=== PATIENT | female | born 1955 | race Caucasian/White ===

== ENCOUNTER 2020-12-21 06:41 | Inpatient (IN) | payer MEDICARE, OTHER ==
[~2020-12-21] VITALS: Ht 162.6 cm; Wt 81.2 kg
[2020-12-22 07:17] LABS: HEMOGLOBIN 10.3 gm/dl (12.3-15.3); RED BLOOD COUNT 3.54 M/UL (4.00-5.10); WHITE BLOOD COUNT 12.6 K/UL (4.5-11.0)
[2020-12-22] MEDS ORDERED: FUROSEMIDE40 MG PO (07:39)
[2020-12-22] MEDS ORDERED: NOVOLIN 70100 UNIT/2 SQ (07:39)
[2020-12-22] MEDS ORDERED: LOPRESSOR 50 MG50 MG PO (07:40)
[2020-12-22] MEDS ORDERED: HYDRALAZINE HCL25 MG PO (07:40)
[2020-12-22] MEDS ORDERED: LASIX 40 MG TAB40 MG PO (07:40)
[2020-12-22] MEDS ORDERED: PAROXETINE HCL10 MG PO (07:40)
[2020-12-22] MEDS ORDERED: HYDROCHLOROTH12.5 MG PO (07:41)
[2020-12-22] MEDS ORDERED: RELION NOV100 UNIT/1 SQ (07:41)
[2020-12-22] MEDS ORDERED: PROTONIX 40 MG40 M1 PO (11:45)
[2020-12-23 03:10] LABS: HEMOGLOBIN 9.8 gm/dl (12.3-15.3); RED BLOOD COUNT 3.41 M/UL (4.00-5.10); WHITE BLOOD COUNT 12.2 K/UL (4.5-11.0)
[2020-12-24 03:35] LABS: RED BLOOD COUNT 3.16 M/UL (4.00-5.10); WHITE BLOOD COUNT 10.1 K/UL (4.5-11.0)
[2020-12-25 03:22] LABS: HEMOGLOBIN 10.1 gm/dl (12.3-15.3)
[2020-12-25 03:24] LABS: RED BLOOD COUNT 3.56 M/UL (4.00-5.10); WHITE BLOOD COUNT 7.3 K/UL (4.5-11.0)
[2020-12-26 11:13] LABS: ANTISTREPTOLYSIN O AB 406.6 IU/mL (0.0-200.0); COMPLEMENT C3, SERUM 172 mg/dL (82-167); COMPLEMENT C4, SERUM 36 mg/dL (12-38); HBSAG SCREEN Negative (Negative); HEP B CORE AB, TOT Negative (Negative); HEP C VIRUS AB <0.1 (0.0-0.9)
[2020-12-26 15:14] LABS: ANTI-DSDNA ANTIBODIES 1 IU/mL (0-9)
[2020-12-26 16:13] LABS: A/G RATIO 0.5 (0.7-1.7); ALBUMIN 1.9 g/dL (2.9-4.4); ALPHA-1-GLOBULIN 0.6 g/dL (0.0-0.4); ALPHA-2-GLOBULIN 1.1 g/dL (0.4-1.0); GAMMA GLOBULIN 1.2 g/dL (0.4-1.8); GLOBULIN, TOTAL 3.9 g/dL (2.2-3.9); IMMUNOFIXATION RESULT, SERUM Comment: (.); IMMUNOGLOBULIN A, QN, SERUM 304 mg/dL (87-352); IMMUNOGLOBULIN G, QN, SERUM 935 mg/dL (586-1602); IMMUNOGLOBULIN M, QN, SERUM 154 mg/dL (26-217); M-SPIKE Not Observed g/dL (Not Observed); PROTEIN, TOTAL, SERUM 5.8 g/dL (6.0-8.5)
[2020-12-27 04:04] LABS: HEMOGLOBIN 9.8 gm/dl (12.3-15.3); RED BLOOD COUNT 3.38 M/UL (4.00-5.10); WHITE BLOOD COUNT 7.7 K/UL (4.5-11.0)
[2020-12-27 18:09] LABS: ATYPICAL PANCA <1:20 titer (Neg:<1:20); CYTOPLASMIC (C-ANCA) <1:20 titer (Neg:<1:20); PERINUCLEAR (P-ANCA) <1:20 titer (Neg:<1:20)
--- NOTE | 2020-12-28 06:11 | NUR ---
WOUND CARE PERFORMED ON PATIENT. BILATERAL LOWER LEG WOUNDS CLEANSED WITH WOUND ELECTROPHYSIOLOGY TECHNICIAN AND NONSTICK DRESSINGS APPLIED, COVERED WITH ABD PADS AND WRAPPED WITH DRU. PT TOLERATED WELL. LOWER EXTREMITIES ELEVATED ON PILLOWS TO KEEP HEELS OFF THE BED. PT ALSO TURNED TO HER LEFT SIDE.
[2020-12-30 04:12] LABS: HEMOGLOBIN 10.4 gm/dl (12.3-15.3); RED BLOOD COUNT 3.74 M/UL (4.00-5.10); WHITE BLOOD COUNT 9.5 K/UL (4.5-11.0)
[2020-12-31 03:08] LABS: HEMOGLOBIN 9.8 gm/dl (12.3-15.3); RED BLOOD COUNT 3.52 M/UL (4.00-5.10); WHITE BLOOD COUNT 10.1 K/UL (4.5-11.0)
--- NOTE | 2020-12-31 17:09 | NUR ---
DRESSINGS TO BILATERAL LEGS/*FEET CHANGED, CLEANSED WITH NS, PAT DRY, SANTYL APPLIED TO SLOTH AREA ON TOP OF RIGHT LEG AND TO AREAS OF LEFT HEEL THAT ARE NECROTIC/ESCAR FOLLOWED BY WET TO DRY DRESSING COVERED WITH KERLIX, OTHER AREAS COVERED WITH WET/DRY DRESSING.
[2021-01-01 04:01] LABS: HEMOGLOBIN 9.6 gm/dl (12.3-15.3); RED BLOOD COUNT 3.43 M/UL (4.00-5.10); WHITE BLOOD COUNT 11.1 K/UL (4.5-11.0)
[2021-01-02 02:02] LABS: HEMOGLOBIN 10.4 gm/dl (12.3-15.3); RED BLOOD COUNT 3.76 M/UL (4.00-5.10); WHITE BLOOD COUNT 8.6 K/UL (4.5-11.0)
[2021-01-02 08:13] LABS: ATYPICAL PANCA <1:20 titer (Neg:<1:20); CYTOPLASMIC (C-ANCA) <1:20 titer (Neg:<1:20); PERINUCLEAR (P-ANCA) <1:20 titer (Neg:<1:20)
[2021-01-03 04:19] LABS: HEMOGLOBIN 10.4 gm/dl (12.3-15.3); RED BLOOD COUNT 3.77 M/UL (4.00-5.10); WHITE BLOOD COUNT 7.5 K/UL (4.5-11.0)
--- NOTE | 2021-01-03 14:30 | NUR ---
BATH GIVEN, LINENS CHANGED, WOUND CARE TO BILATERAL LEGS DONE, CLEANSED WITH NS, PAT DRY, IODINE SOAKED 4X4'S PLACED ON WOUNDS COVERED WITH DRY DRESSING AND KERLIX APPLIED.
[2021-01-05 02:10] LABS: HEMOGLOBIN 8.5 gm/dl (12.3-15.3); WHITE BLOOD COUNT 6.9 K/UL (4.5-11.0)
[2021-01-05 02:13] LABS: RED BLOOD COUNT 3.07 M/UL (4.00-5.10)
[2021-01-06 04:26] LABS: HEMOGLOBIN 8.5 gm/dl (12.3-15.3); RED BLOOD COUNT 3.11 M/UL (4.00-5.10); WHITE BLOOD COUNT 5.6 K/UL (4.5-11.0)
[2021-01-06 10:01] LABS: URINE CREATININE 85.3 mg/dL
[2021-01-07 03:46] LABS: HEMOGLOBIN 9.7 gm/dl (12.3-15.3)
[2021-01-07 03:51] LABS: RED BLOOD COUNT 3.5 M/UL (4.00-5.10); WHITE BLOOD COUNT 8.4 K/UL (4.5-11.0)
[2021-01-08 08:04] LABS: HEMOGLOBIN 8.6 gm/dl (12.3-15.3); RED BLOOD COUNT 3.19 M/UL (4.00-5.10); WHITE BLOOD COUNT 5.5 K/UL (4.5-11.0)
--- NOTE | 2021-01-08 18:21 | NUR ---
DRESSING CHANGED TO BILATERAL FEET PER MD ORDERS
[2021-01-09] MEDS ORDERED: HUMALOG 10100 UNITS/ SC (11:30)
[2021-01-09] MEDS ORDERED: SANTYL OINT 3030 GM TOP (11:30)
[2021-01-09] MEDS ORDERED: ATORVASTATIN CA20 MG PO (11:30)
[2021-01-09] MEDS ORDERED: CHRONULAC20 GM/30 M PO (11:30)
[2021-01-09] MEDS ORDERED: ALDACTONE 25MG25 MG PO (11:30)
[2021-01-09] MEDS ORDERED: ASPIRIN EC81 MG PO (11:30)
[2021-01-09] MEDS ORDERED: DOCUSATE SODIU100 MG PO (11:30)
[2021-01-09] MEDS ORDERED: CARVEDILOL3.125 MG PO (11:30)
[2021-01-09] MEDS ORDERED: BUMETANIDE1 MG PO (11:30)
--- NOTE | 2021-01-09 16:40 | NUR ---
REPORT CALLED TO [facility]. EXPLAINED TO ACCEPTING NURSE PATIENTS EF AND LIFE VEST IN PLACE. NURSE STATED SHE DIDN'T KNOW SHE HAD A LIFE VEST. I TOLD HER THE DATE IT WAS PLACED ON HER PER HER CHART, AND THAT I WOULD PLACE A COPY OF THE LIFE VEST INSTRUCTIONS IN HER DC PACKET. SHE SAID OKAY. I ASKED IF SHE HAD ANY QUESTIONS, SHE SAID NO. I STATED THAT EMS HAD JUST ARRIVED TO THE DESK TO TRANSPORT PATIENT. I INSTRUCTED HER TO CALL BACK IF SHE HAD ANY QUESTIONS. APPROX. 20 MINS LATER, AN EMPLOYEE FROM [facility] AND [facility] CALLED BACK TO THE FLOOR AND STATED THEY WERE UNAWARE THAT THE PATIENT HAD A LIFE VEST ON UNTIL I GAVE REPORT. SHE THEN SAID THAT THE CM WAS CALLING HER BACK. I WAS NOTIFIED PER CM THAT THE FACILITY WAS NOT ACCEPTING THE PATIENT NOW DUE TO HER LIFE VEST AND THAT THE AMBULANCE SERVICE NEEDED TO BE CONTACTED TO RETURN PATIENT BACK TO [facility]. AMBULANCE SERVICE CONTATED VIA TELEPHONE, SITUATION EXPLAINED. THEY STATED THEY WOULD CONTACT THE AMBULANCE TEAM THAT TRANSPORTED HER.
--- NOTE | 2021-01-09 16:49 | NUR ---
PATIENT ARRIVED BACK TO ROOM, TRANSPORTED VIA AMBULANCE SERVICE.
[2021-01-16 06:54] LABS: HEMOGLOBIN 7.9 gm/dl (12.3-15.3); RED BLOOD COUNT 2.92 M/UL (4.00-5.10); WHITE BLOOD COUNT 3.9 K/UL (4.5-11.0)
--- NOTE | 2021-01-16 18:37 | NUR ---
dressing changes to bilateral lower extremities with betadine pt tolerated well.
--- NOTE | 2021-01-17 13:52 | NUR ---
REPORT CALLED TO [facility] AND [facility] NOTIFIED PT AWAITING EMS FOR TRANSFER.
--- NOTE | 2021-01-17 17:25 | NUR ---
Notified [facility] that patients test engine evaluator and battery was left at our facility... they are contacting [employer] to get another test engine evaluator and battery out to their facility... [facility] is going to call me back in the meantime for an update.
== END 2021-01-17 14:59 | DRG 280 ==
LOC: PROG CARE 06:41 → MED SURG 4 12-22 06:05
PROVIDERS: Internal Medicine; Internal Medicine Infectious Disease; Internal Medicine Nephrology; ADMIT Internal Medicine
DX: I13.0 Hypertensive heart and chronic kidney disease with heart failure and stage 1 through stage 4 chronic kidney disease, or unspecified chronic kidney disease (principal); I21.A1 Myocardial infarction type 2; I50.23 Acute on chronic systolic (congestive) heart failure; Z20.822 Contact with and (suspected) exposure to COVID-19; N17.9 Acute kidney failure, unspecified; E87.1 Hypo-osmolality and hyponatremia; L97.921 Non-pressure chronic ulcer of unspecified part of left lower leg limited to breakdown of skin; L97.911 Non-pressure chronic ulcer of unspecified part of right lower leg limited to breakdown of skin; L03.116 Cellulitis of left lower limb; L03.115 Cellulitis of right lower limb; N18.4 Chronic kidney disease, stage 4 (severe); I42.9 Cardiomyopathy, unspecified; E11.22 Type 2 diabetes mellitus with diabetic chronic kidney disease; E11.65 Type 2 diabetes mellitus with hyperglycemia; E66.9 Obesity, unspecified; R80.9 Proteinuria, unspecified; L89.322 Pressure ulcer of left buttock, stage 2; L89.312 Pressure ulcer of right buttock, stage 2; D50.9 Iron deficiency anemia, unspecified; K59.00 Constipation, unspecified; D63.1 Anemia in chronic kidney disease; J44.9 Chronic obstructive pulmonary disease, unspecified; E87.6 Hypokalemia; E11.21 Type 2 diabetes mellitus with diabetic nephropathy; I49.3 Ventricular premature depolarization; Z90.710 Acquired absence of both cervix and uterus; Z98.890 Other specified postprocedural states; Z88.8 Allergy status to other drugs, medicaments and biological substances; Z87.891 Personal history of nicotine dependence; Z82.49 Family history of ischemic heart disease and other diseases of the circulatory system; Z86.73 Personal history of transient ischemic attack (TIA), and cerebral infarction without residual deficits; Z79.899 Other long term (current) drug therapy; Z79.82 Long term (current) use of aspirin; Z79.4 Long term (current) use of insulin; Z99.81 Dependence on supplemental oxygen; Z68.35 Body mass index [BMI] 35.0-35.9, adult
CPT/HCPCS: ECHO; 36415; 71045; 78452; 80048; 80053; 81001; 82436; 82550; 82553; 82565; 82570; 82575; 82728; 82784; 82962; 83036; 83520; 83540; 83550; 83690; 83735; 83880; 83883; 84132; 84133; 84155; 84156; 84165; 84300; 84439; 84443; 84484; 85025; 85027; 85049; 85730; 86038; 86060; 86140; 86160; 86162; 86225; 86256; 86334; 86704; 86706; 86708; 86803; 87070; 87077; 87186; 87205; 87340; 89050; 93005; 93017; 93306; 94640; 94664; 94760; 97110; 97110-GP-CQ; 97116; 97116-GP-CQ; 97162; 97166; 97530; 97530-GP-CQ; A6212; A9502; C9113; J0692; J0696; J1205; J1335; J1644; J1650; J1756; J1940; J2020; J2185; J2765; J2785; J3475; J7050; P9047; U0002